=== PATIENT | female | born 1970 | race Caucasian/White ===

== ENCOUNTER → 2017-06-22 17:26 | Outpatient (CLI) | payer OTHER ==
[2013-07-26 08:38] VITALS: BMI 35.9
[~2017-06-22 17:26] MED LIST: ADDERALL 20 MG20 M1 PO; DEMEROL50 MG PO; ESTRACE1 MG PO; MOTRIN600 MG PO; PEPCID AC20 MG PO
== END | disposition home or self-care (01) ==
LOC: D.MAMMO 05-13 16:00
DX: Z12.31 Encounter for screening mammogram for malignant neoplasm of breast (principal)

== ENCOUNTER → 2019-12-21 11:00 | Outpatient (CLI) | payer OTHER ==
[2013-07-26 08:38] VITALS: BMI 35.9
== END | disposition home or self-care (01) ==
LOC: D.MAMMO 11:00
PROVIDERS: ATTEND Family Medicine
DX: N63.10 Unspecified lump in the right breast, unspecified quadrant (principal); Z80.3 Family history of malignant neoplasm of breast